=== PATIENT | male | born 1940 | race Hispanic/Latino ===

== ENCOUNTER 2018-01-06 15:39 | Emergency (ER) | payer OTHER ==
[~2018-01-06 15:39] MED LIST: ACET1TAB12 PO; ASPI-1181 PO; ATOR20TA65 PO; CALC-866 PO; DABI150C PO; ISOSM20 PO; TRAM50TA4 PO; VERA240SR PO
[2018-01-06] MEDS ORDERED: TETANUS/DIPHTHERIA TOXOID [ADULT] 0.5 ML VIAL IM ONE (16:16)
[2018-01-06] MEDS ORDERED: IBUPROFEN 600 MG TABLET ONE (17:08)
== END 2018-01-06 17:21 | disposition home or self-care (01) ==
LOC: EDH 15:39
DX: S46.002A Unspecified injury of muscle(s) and tendon(s) of the rotator cuff of left shoulder, initial encounter (principal); S80.812A Abrasion, left lower leg, initial encounter; S80.811A Abrasion, right lower leg, initial encounter; M19.90 Unspecified osteoarthritis, unspecified site; I48.91 Unspecified atrial fibrillation; E11.9 Type 2 diabetes mellitus without complications; I10 Essential (primary) hypertension; W18.39XA Other fall on same level, initial encounter; Y93.89 Activity, other specified; Y92.89 Other specified places as the place of occurrence of the external cause; Y99.8 Other external cause status
CPT/HCPCS: 73030; 73562; 90471; 90714

== ENCOUNTER → 2018-11-16 | Outpatient (CLI) | payer OTHER | END | disposition home or self-care (01) | LOC: RAH 16:11 | PROVIDERS: ATTEND Internal Medicine | DX: M25.561 Pain in right knee (principal) | CPT/HCPCS: 73562 ==

== ENCOUNTER → 2018-11-19 | Outpatient (CLI) | payer OTHER ==
[2018-11-19 11:55] LABS: BASOPHILS % (AUTO) 0.6 % (0.0-5.0); EOSINOPHILS % (AUTO) 3.9 % (0.0-8.0); HEMATOCRIT 46.5 % (42-54); MEAN CORPUSCULAR HEMOGLOBIN 29.7 pg (27.0-33.0); MEAN CORPUSCULAR HGB CONC 32.7 g/dL (32.0-36.0); MEAN CORPUSCULAR VOLUME 90.8 fL (79-99); MONOCYTES % (AUTO) 11.9 % (3.0-13.0); NEUTROPHILS % (AUTO) 62.6 % (40.0-77.0); NUCLEATED RED BLOOD CELLS 0.2 % (0.0-0.19); PLATELET COUNT (AUTO) 169 K/uL (130-400); RED BLOOD CELL COUNT(AUTO) 5.12 MIL/uL (4.50-6.20); RED CELL DISTRIBUTION WIDTH 14.1 % (11.0-15.5); WHITE BLOOD COUNT (AUTO) 5.1 K/uL (4.8-10.8)
[2018-11-19 12:24] LABS: ALANINE AMINOTRANSFERASE 16 U/L (12-78); ALBUMIN 3.7 g/dL (3.5-5.0); ASPARTATE AMINOTRANSFERASE 14 U/L (10-37); BILIRUBIN,TOTAL 1.5 mg/dL (0.2-1.0); CARBON DIOXIDE 29 mmol/L (21-32); CHLORIDE 105 mmol/L (101-111); CHOLESTEROL 151 mg/dL (<200); GLOMERULAR FILTR. RATE CALC 77 mL/min (>60); GLUCOSE,RANDOM 101 mg/dL (70-105); HDL CHOLESTEROL 53 mg/dL (29-71); LDL DIRECT 86 mg/dL (0-99); POTASSIUM 4.2 mmol/L (3.5-5.1); SODIUM SERUM 144 mmol/L (136-145); THYROID STIMULATING HORMONE 3.14 uIU/mL (0.36-3.74); TOTAL PROTEIN, SERUM 7.8 g/dL (6.0-8.3); TRIGLYCERIDES 96 mg/dL (30-200); UREA NITROGEN, BLOOD 17 mg/dL (7-18)
[2018-11-19 12:50] LABS: HEMOGLOBIN A1C 6.1 % (4.0-6.0)
== END | disposition home or self-care (01) ==
LOC: LAB 11:24
PROVIDERS: ATTEND Internal Medicine
DX: I48.91 Unspecified atrial fibrillation (principal); I25.10 Atherosclerotic heart disease of native coronary artery without angina pectoris; E78.5 Hyperlipidemia, unspecified; E53.8 Deficiency of other specified B group vitamins; Z79.899 Other long term (current) drug therapy
CPT/HCPCS: 36415; 80053; 80061; 82607; 82746; 83036; 84443; 85025

== ENCOUNTER → 2018-12-19 | Outpatient (CLI) | payer OTHER | END | disposition home or self-care (01) | LOC: RAH 13:11 | PROVIDERS: ATTEND Internal Medicine | DX: Z01.818 Encounter for other preprocedural examination (principal); M25.561 Pain in right knee; M17.11 Unilateral primary osteoarthritis, right knee | CPT/HCPCS: 71046 ==

== ENCOUNTER → 2018-12-24 | Outpatient (CLI) | payer OTHER | END | disposition home or self-care (01) | LOC: SHCH 08:40 | PROVIDERS: ATTEND Internal Medicine Cardiovascular Disease | DX: I11.9 Hypertensive heart disease without heart failure (principal); I35.1 Nonrheumatic aortic (valve) insufficiency; I35.8 Other nonrheumatic aortic valve disorders | CPT/HCPCS: 93306 ==

== ENCOUNTER → 2019-01-17 | Outpatient (CLI) | payer OTHER ==
[~2019-01-17] VITALS: Ht 162.6 cm; Wt 68.0 kg
[~2019-01-17] MED LIST changes: +REGADENOSON 0.4 MG/5 ML PF SYG IVP SCH
== END | disposition home or self-care (01) ==
LOC: SHCH 09:04
PROVIDERS: ATTEND Internal Medicine Cardiovascular Disease
DX: I10 Essential (primary) hypertension (principal); I48.2 Chronic atrial fibrillation
CPT/HCPCS: 78452; 93017; 96374; A9500 ×2; J2785

== ENCOUNTER → 2019-03-18 | Outpatient (CLI) | payer OTHER ==
[~2019-03-18] MED LIST changes: -REGADENOSON 0.4 MG/5 ML PF SYG IVP SCH
== END | disposition home or self-care (01) ==
LOC: RAH 15:53
PROVIDERS: ATTEND Internal Medicine
DX: I11.0 Hypertensive heart disease with heart failure (principal); I50.9 Heart failure, unspecified; M47.815 Spondylosis without myelopathy or radiculopathy, thoracolumbar region; M41.85 Other forms of scoliosis, thoracolumbar region; I70.0 Atherosclerosis of aorta
CPT/HCPCS: 71046

== ENCOUNTER → 2019-09-04 | Outpatient (CLI) | payer OTHER | END | disposition home or self-care (01) | LOC: RAH 16:58 | PROVIDERS: ATTEND Internal Medicine | DX: S42.92XA Fracture of left shoulder girdle, part unspecified, initial encounter for closed fracture (principal); M19.012 Primary osteoarthritis, left shoulder; M89.8X4 Other specified disorders of bone, hand; W19.XXXA Unspecified fall, initial encounter; Y93.89 Activity, other specified; Y92.89 Other specified places as the place of occurrence of the external cause; Y99.8 Other external cause status | CPT/HCPCS: 73030; 73060 ==

== ENCOUNTER 2020-07-07 19:38 | Emergency (ER) | payer OTHER ==
[~2020-07-07 19:38] MED LIST changes: -ASPI-1181 PO; +ASPI-1443 PO
[2020-07-07] MEDS ORDERED: DiphenhydrAMINE HCL 50 MG/ML VIAL ONE (19:53)
[2020-07-07] MEDS ORDERED: METHYLPREDNISOLONE SOD SUCC 125MG/2ML VIAL ONE (19:54)
[2020-07-07] MEDS ORDERED: FAMOTIDINE/PF 20 MG/2 ML VIAL IV ONE (19:54)
[2020-07-07] MEDS ORDERED: ALBUTEROL SULFATE 0.083% 2.5 MG/3 ML INH IH ONE (19:59)
== END 2020-07-07 21:34 | disposition home or self-care (01) ==
LOC: EDH 19:38
DX: T63.441A Toxic effect of venom of bees, accidental (unintentional), initial encounter (principal); T78.40XA Allergy, unspecified, initial encounter; M19.90 Unspecified osteoarthritis, unspecified site; E11.9 Type 2 diabetes mellitus without complications; I10 Essential (primary) hypertension; I48.91 Unspecified atrial fibrillation; Y92.89 Other specified places as the place of occurrence of the external cause
CPT/HCPCS: 93005; 94640; 96374; 96375; 99284; J1200; J2930; J3490

== ENCOUNTER → 2020-11-11 | Outpatient (CLI) | payer OTHER | END | disposition home or self-care (01) | LOC: RAH 09:31 | PROVIDERS: ATTEND Internal Medicine | DX: M16.11 Unilateral primary osteoarthritis, right hip (principal); M24.7 Protrusio acetabuli; M25.751 Osteophyte, right hip | CPT/HCPCS: 73502 ==

== ENCOUNTER → 2020-12-02 | Outpatient (CLI) | payer OTHER | END | disposition home or self-care (01) | LOC: RAH 14:00 | PROVIDERS: ATTEND Internal Medicine | DX: K41.90 Unilateral femoral hernia, without obstruction or gangrene, not specified as recurrent (principal); R10.31 Right lower quadrant pain; M15.0 Primary generalized (osteo)arthritis | CPT/HCPCS: 76882 ==

== ENCOUNTER 2022-01-02 22:40 | Emergency (ER) | payer OTHER ==
[~2022-01-02] VITALS: Ht 160 cm; Wt 63.5 kg
[~2022-01-02 22:40] MED LIST changes: -VERA240SR PO; +VERA240T96 PO
[2022-01-02] MEDS ORDERED: TETANUS/DIPHTHERIA TOXOID [ADULT] 0.5 ML VIAL IM ONE (23:00)
[2022-01-02] MEDS ORDERED: ACETAMINOPHEN WITH CODEINE 1 TAB TAB PO ONE (23:00)
[2022-01-02 23:46] LABS: BASOPHILS % (AUTO) 0.2 % (0.0-5.0); EOSINOPHILS % (AUTO) 1.9 % (0.0-8.0); HEMATOCRIT 40.8 % (42-54); LYMPHOCYTES % (AUTO) 9.9 % (21.0-51.0); MEAN CORPUSCULAR HEMOGLOBIN 30.4 pg (27.0-33.0); MEAN CORPUSCULAR HGB CONC 32.6 g/dL (32.0-36.0); MEAN CORPUSCULAR VOLUME 93.2 fL (79-99); MONOCYTES % (AUTO) 12.4 % (3.0-13.0); NEUTROPHILS % (AUTO) 75.2 % (40.0-77.0); PLATELET COUNT (AUTO) 217 K/uL (130-400); RED BLOOD CELL COUNT(AUTO) 4.38 MIL/uL (4.50-6.20); RED CELL DISTRIBUTION WIDTH 13.4 % (11.0-15.5); WHITE BLOOD COUNT (AUTO) 8.5 K/uL (4.8-10.8)
[2022-01-03 00:07] LABS: CREATININE 1.1 mg/dL (0.5-1.5); POTASSIUM 3.9 mmol/L (3.5-5.1)
[2022-01-03 00:16] LABS: ALBUMIN 3.8 g/dL (3.5-5.0); BILIRUBIN,TOTAL 1.1 mg/dL (0.2-1.0); TOTAL PROTEIN, SERUM 7.4 g/dL (6.0-8.3)
[2022-01-03 01:06] VITALS: BP 144/73
== END 2022-01-03 01:42 | disposition home or self-care (01) ==
LOC: EDH 22:40
DX: S93.401A Sprain of unspecified ligament of right ankle, initial encounter (principal); S00.81XA Abrasion of other part of head, initial encounter; M25.569 Pain in unspecified knee; E78.00 Pure hypercholesterolemia, unspecified; I10 Essential (primary) hypertension; I25.10 Atherosclerotic heart disease of native coronary artery without angina pectoris; Z79.01 Long term (current) use of anticoagulants; Z79.82 Long term (current) use of aspirin; W18.39XA Other fall on same level, initial encounter; Y93.89 Activity, other specified; Y92.89 Other specified places as the place of occurrence of the external cause; Y99.8 Other external cause status
CPT/HCPCS: 29515; 36415; 70450; 72125; 73610; 73630; 80053; 84484; 85025; 90471; 90714

== ENCOUNTER 2022-01-21 11:35 | Emergency (ER) | payer OTHER ==
[~2022-01-21] VITALS: Ht 152.4 cm; Wt 59.0 kg
[~2022-01-21 11:35] MED LIST changes: -NAPR-1196 PO
[2022-01-21] MEDS ORDERED: NAPR-1196 PO (12:09)
[2022-01-21 12:26] VITALS: BP 145/74
== END 2022-01-21 12:27 | disposition home or self-care (01) ==
LOC: EDH 11:35
DX: S62.616A Displaced fracture of proximal phalanx of right little finger, initial encounter for closed fracture (principal); S60.151A Contusion of right little finger with damage to nail, initial encounter; E11.9 Type 2 diabetes mellitus without complications; E78.00 Pure hypercholesterolemia, unspecified; I10 Essential (primary) hypertension; I25.10 Atherosclerotic heart disease of native coronary artery without angina pectoris; Z79.01 Long term (current) use of anticoagulants; Z79.82 Long term (current) use of aspirin; Z90.49 Acquired absence of other specified parts of digestive tract; X58.XXXA Exposure to other specified factors, initial encounter; Y93.89 Activity, other specified; Y92.89 Other specified places as the place of occurrence of the external cause; Y99.8 Other external cause status
CPT/HCPCS: 11740; 29130

== ENCOUNTER → 2022-01-21 | Outpatient (CLI) | payer OTHER ==
[~2022-01-21] MED LIST changes: +NAPR-1196 PO
== END | disposition home or self-care (01) ==
LOC: RAH 10:37
PROVIDERS: ATTEND Internal Medicine
DX: S62.646A Nondisplaced fracture of proximal phalanx of right little finger, initial encounter for closed fracture (principal); S60.221A Contusion of right hand, initial encounter; M19.041 Primary osteoarthritis, right hand; X58.XXXA Exposure to other specified factors, initial encounter; Y93.89 Activity, other specified; Y92.89 Other specified places as the place of occurrence of the external cause; Y99.8 Other external cause status
CPT/HCPCS: 73110; 73130

== ENCOUNTER 2022-09-08 15:50 | Emergency (ER) | payer OTHER ==
[~2022-09-08] VITALS: Ht 160 cm; Wt 61.2 kg
[~2022-09-08 15:50] MED LIST changes: +NAPR-1196 PO
[2022-09-08 15:56] VITALS: BP 138/81
[2022-09-08 17:16] LABS: APPEARANCE,URINE CLEAR (CLEAR); BILIRUBIN,URINE NEGATIVE (NEGATIVE); COLOR,URINE LIGHT-YELLOW (YELLOW); GLUCOSE, URINE (UA) NEGATIVE (NEGATIVE); KETONES,URINE NEGATIVE (NEGATIVE); LEUKOCYTE ESTERASE ,URINE NEGATIVE Leu/uL (NEGATIVE); NITRATE,URINE NEGATIVE (NEGATIVE); OCCULT BLOOD,URINE NEGATIVE (NEGATIVE); PH,URINE 6.5 (5.0-8.0); PROTEIN,URINE NEGATIVE (NEGATIVE); UROBILINOGEN,URINE 0.2 mg/dL (0.2-1.0)
== END 2022-09-08 18:45 | disposition home or self-care (01) ==
LOC: EDH 15:50
DX: M25.561 Pain in right knee (principal); E78.00 Pure hypercholesterolemia, unspecified; I10 Essential (primary) hypertension; Z98.890 Other specified postprocedural states; Z79.899 Other long term (current) drug therapy; Z79.82 Long term (current) use of aspirin
CPT/HCPCS: 73562; 81003

== ENCOUNTER 2023-01-28 02:38 | Emergency (ER) | payer OTHER ==
[~2023-01-28] VITALS: Ht 162.6 cm; Wt 65.8 kg
[2023-01-28] MEDS ORDERED: ONDANSETRON 4MG INJ IVP ONE (03:00)
[2023-01-28] MEDS ORDERED: MORPHINE 2 MG SYG IVP ONE (03:00)
[2023-01-28 03:09] LABS: BASOPHILS % (AUTO) 0.3 % (0.0-5.0); EOSINOPHILS % (AUTO) 3.4 % (0.0-8.0); HEMATOCRIT 42.4 % (42-54); LYMPHOCYTES % (AUTO) 18.1 % (21.0-51.0); MEAN CORPUSCULAR HEMOGLOBIN 29.9 pg (27.0-33.0); MEAN CORPUSCULAR HGB CONC 32.3 g/dL (32.0-36.0); MEAN CORPUSCULAR VOLUME 92.6 fL (79-99); MONOCYTES % (AUTO) 10.9 % (3.0-13.0); NEUTROPHILS % (AUTO) 66.6 % (40.0-77.0); PLATELET COUNT (AUTO) 196 K/uL (130-400); RED BLOOD CELL COUNT(AUTO) 4.58 MIL/uL (4.50-6.20); RED CELL DISTRIBUTION WIDTH 14.5 % (11.0-15.5); WHITE BLOOD COUNT (AUTO) 6.1 K/uL (4.8-10.8)
[2023-01-28 03:15] LABS: POTASSIUM 3.3 mmol/L (3.5-5.1)
[2023-01-28 03:20] LABS: ALBUMIN 3.7 g/dL (3.5-5.0); TOTAL PROTEIN, SERUM 7.4 g/dL (6.0-8.3)
[2023-01-28 06:02] VITALS: BP 123/58
[2023-01-28] MEDS ORDERED: ACET-2079 PO (06:17)
[2023-01-28] MEDS ORDERED: IBUP-2070 PO (06:17)
== END 2023-01-28 06:34 | disposition home or self-care (01) ==
LOC: EDH 02:38
DX: S22.42XA Multiple fractures of ribs, left side, initial encounter for closed fracture (principal); I10 Essential (primary) hypertension; E11.9 Type 2 diabetes mellitus without complications; E78.00 Pure hypercholesterolemia, unspecified; Z98.890 Other specified postprocedural states; Z79.899 Other long term (current) drug therapy; Z79.82 Long term (current) use of aspirin; V89.2XXA Person injured in unspecified motor-vehicle accident, traffic, initial encounter; Y93.I9 Activity, other involving external motion; Y92.488 Other paved roadways as the place of occurrence of the external cause; Y99.8 Other external cause status
CPT/HCPCS: 99285; 70450; 96374; 96375; 84484; 80053; 85025; 36415; 72125; 71250; 74176; 93005; J2405

== ENCOUNTER 2023-07-29 06:55 | Emergency (ER) | payer OTHER ==
[~2023-07-29] VITALS: Ht 154.9 cm; Wt 56.7 kg
[~2023-07-29 06:55] MED LIST changes: +ACET-2079 PO; +IBUP-2070 PO
[2023-07-29] MEDS ORDERED: MORPHINE 4 MG SYG IVP ONE ×2 (07:00→09:00)
[2023-07-29] MEDS ORDERED: ONDANSETRON 4MG INJ IVP ONE (07:00)
[2023-07-29 07:20] LABS: BASOPHILS # (AUTO) 0.02 K/uL (0.00-0.20); BASOPHILS % (AUTO) 0.3 % (0.0-5.0); EOSINOPHILS # (AUTO) 0.28 K/uL (0.00-0.70); EOSINOPHILS % (AUTO) 4.2 % (0.0-8.0); HEMATOCRIT 34.5 % (42-54); IMMATURE GRANULOCYTE ABSOLUTE 0.02 K/uL (0-1); LYMPHOCYTES # (AUTO) 1.1 K/uL (1.0-4.8); LYMPHOCYTES % (AUTO) 16.5 % (21.0-51.0); MEAN CORPUSCULAR HEMOGLOBIN 30.2 pg (27.0-33.0); MEAN CORPUSCULAR VOLUME 91.3 fL (79-99); MONOCYTES # (AUTO) 0.7 K/uL (0.1-1.0); MONOCYTES % (AUTO) 10.9 % (3.0-13.0); NEUTROPHILS # (AUTO) 4.5 K/uL (1.8-7.7); NEUTROPHILS % (AUTO) 67.8 % (40.0-77.0); PLATELET COUNT (AUTO) 179 K/uL (130-400); RED BLOOD CELL COUNT(AUTO) 3.78 MIL/uL (4.50-6.20); RED CELL DISTRIBUTION WIDTH 15.8 % (11.0-15.5); WHITE BLOOD COUNT (AUTO) 6.6 K/uL (4.8-10.8)
[2023-07-29 07:29] LABS: ALCOHOL, BLOOD < 3 mg/dL (0-10)
[2023-07-29 07:30] LABS: INR 1.03 (0.85-1.15); PROTHROMBIN TIME 11.9 SEC (9.6-11.6)
[2023-07-29 07:31] LABS: PARTIAL THROMBOPLASTIN TIME 27.9 SEC (26.3-35.5)
[2023-07-29 07:57] LABS: ALANINE AMINOTRANSFERASE 19 U/L (12-78); ALBUMIN 3.4 g/dL (3.5-5.0); ASPARTATE AMINOTRANSFERASE 18 U/L (10-37); BILIRUBIN,TOTAL 1.1 mg/dL (0.2-1.0); CARBON DIOXIDE 25 mmol/L (21-32); CHLORIDE 106 mmol/L (101-111); CREATINE KINASE, TOTAL 119 U/L (21-232); CREATININE 1.2 mg/dL (0.5-1.5); GLOMERULAR FILTR. RATE CALC 60 mL/min (>90); GLUCOSE,RANDOM 109 mg/dL (70-105); MYOGLOBIN 1205 ng/mL (10-92); POTASSIUM 3.4 mmol/L (3.5-5.1); SODIUM SERUM 138 mmol/L (136-145); TOTAL PROTEIN, SERUM 6.8 g/dL (6.0-8.3); UREA NITROGEN, BLOOD 18 mg/dL (7-18)
[2023-07-29 08:15] VITALS: BP 132/78; PULSE 72; RESP 18
[2023-07-29] MEDS ORDERED: DONE10TA43 PO (08:36)
[2023-07-29] MEDS ORDERED: APIX5TAB PO (08:36)
[2023-07-29] MEDS ORDERED: DULO30CA52 PO (08:36)
[2023-07-29] MEDS ORDERED: TAMS-1 PO (08:36)
[2023-07-29] MEDS ORDERED: ISOS10TA8 PO (08:36)
== END 2023-07-29 11:30 | disposition home or self-care (01) ==
LOC: EDH 06:55
DX: S43.014A Anterior dislocation of right humerus, initial encounter (principal); I10 Essential (primary) hypertension; E11.9 Type 2 diabetes mellitus without complications; E78.00 Pure hypercholesterolemia, unspecified; G44.309 Post-traumatic headache, unspecified, not intractable; Z79.82 Long term (current) use of aspirin; Z79.01 Long term (current) use of anticoagulants; Z79.899 Other long term (current) drug therapy; Z98.890 Other specified postprocedural states; W01.0XXA Fall on same level from slipping, tripping and stumbling without subsequent striking against object, initial encounter; Y93.89 Activity, other specified; Y92.89 Other specified places as the place of occurrence of the external cause; Y99.8 Other external cause status
CPT/HCPCS: 99285; 70450; 23650; 96374; 71045; 96375; 82550; 83874; 84484; 80053; 85025; 85610; 85730; 36415; 73090; 73060; 73030; 72125; 73020 ×2; 96376; 93005; J2405; J2270 ×2

== ENCOUNTER → 2023-08-25 | Outpatient (CLI) | payer OTHER ==
[~2023-08-25] MED LIST changes: -ACET-2079 PO; -ACET1TAB12 PO; +APIX5TAB PO; -ASPI-1443 PO; -CALC-866 PO; -DABI150C PO; +DONE10TA43 PO; +DULO30CA52 PO; -IBUP-2070 PO; +ISOS10TA8 PO; -ISOSM20 PO; -NAPR-1196 PO; +REGADENOSON 0.4 MG/5 ML PF SYG IVP ONE; +TAMS-1 PO; -TRAM50TA4 PO
== END | disposition home or self-care (01) ==
LOC: SHCH 07:59
PROVIDERS: ATTEND Internal Medicine Cardiovascular Disease
DX: I48.91 Unspecified atrial fibrillation (principal); I25.10 Atherosclerotic heart disease of native coronary artery without angina pectoris
CPT/HCPCS: 78452; 96374; 93017; J2785; A9500 ×2

== ENCOUNTER 2024-07-19 10:55 | Inpatient (IN) | payer MEDICARE ==
[~2024-07-19] VITALS: Ht 157.5 cm; Wt 59.2 kg
[~2024-07-19 10:55] MED LIST changes: -REGADENOSON 0.4 MG/5 ML PF SYG IVP ONE
[2024-07-19 11:29] LABS: BASOPHILS # (AUTO) 0.02 K/uL (0.00-0.20); BASOPHILS % (AUTO) 0.3 % (0.0-5.0); EOSINOPHILS # (AUTO) 0.17 K/uL (0.00-0.70); EOSINOPHILS % (AUTO) 2.1 % (0.0-8.0); HEMATOCRIT 41.1 % (42-54); IMMATURE GRANULOCYTE ABSOLUTE 0.03 K/uL (0-1); MEAN CORPUSCULAR HEMOGLOBIN 29.8 pg (27.0-33.0); MEAN CORPUSCULAR HGB CONC 33.1 g/dL (32.0-36.0); MEAN CORPUSCULAR VOLUME 89.9 fL (79-99); MONOCYTES # (AUTO) 0.9 K/uL (0.1-1.0); MONOCYTES % (AUTO) 10.8 % (3.0-13.0); NEUTROPHILS % (AUTO) 74.4 % (40.0-77.0); PLATELET COUNT (AUTO) 208 K/uL (130-400); RED BLOOD CELL COUNT(AUTO) 4.57 MIL/uL (4.50-6.20)
[2024-07-19 11:31] LABS: CREATININE 1.1 mg/dL (0.5-1.3); POTASSIUM 3.7 mmol/L (3.5-5.1)
[2024-07-19 11:35] LABS: ALBUMIN 3.4 g/dL (3.5-5.0); BILIRUBIN,TOTAL 1.2 mg/dL (0.2-1.0); MAGNESIUM 2.1 mg/dL (1.80-2.40)
[2024-07-19] MEDS: 0.9% NACL 500ML IV.SOLN 500 ML IV ONE (11:56)
[2024-07-19] MEDS: DOPamine HCL 400 MG/D5%-WATER 250 ML IV STA ×2 (12:27→12:28)
[2024-07-19] MEDS ORDERED: CALCIUM GLUC 1GM/10ML VIAL IV ONE (13:00)
[2024-07-19] MEDS: CALCIUM GLUC 1GM 1 GM in 0.9%NACL 100ML 100 ML IV ONE (13:28)
[2024-07-19] MEDS: 0.9% NACL 500ML IV.SOLN 500 ML IV SCH (13:28)
[2024-07-19 13:45] LABS: APPEARANCE,URINE CLEAR (CLEAR); BILIRUBIN,URINE NEGATIVE (NEGATIVE); COLOR,URINE YELLOW (YELLOW); GLUCOSE, URINE (UA) NEGATIVE (NEGATIVE); KETONES,URINE NEGATIVE (NEGATIVE); LEUKOCYTE ESTERASE ,URINE NEGATIVE Leu/uL (NEGATIVE); NITRATE,URINE NEGATIVE (NEGATIVE); OCCULT BLOOD,URINE SMALL (NEGATIVE); PROTEIN,URINE 10 mg/dL (NEGATIVE)
[2024-07-19 13:46] LABS: ADD UA MICROSCOPIC YES
[2024-07-19 13:47] LABS: MUCUS,URINE RARE LPF (None Seen); SQUAMOUS EPITHELIAL CELL,UR RARE /HPF (0-2)
[2024-07-19 14:46] LABS: INR 1.13 (0.85-1.15); PROTHROMBIN TIME 12.1 SEC (9.6-11.6)
[2024-07-19 14:47] LABS: PARTIAL THROMBOPLASTIN TIME 31.2 SEC (26.3-35.5)
[2024-07-19] MEDS ORDERED: MAGNESIUM 2GM PREMIX 50ML 50 ML IV PRN (16:00)
[2024-07-19] MEDS ORDERED: POTASSIUM CHLORIDE 10% ELIXIR 20 MEQ/15 ML UDCUP PO PRN (16:00)
[2024-07-19] MEDS ORDERED: KCL 20 MEQ ERTAB PO PRN (16:00)
[2024-07-19] MEDS ORDERED: POTASSIUM CHLORIDE 20MEQ/100ML 100 ML IV PRN ×2 (16:00)
[2024-07-19 16:43] LABS: HEMOGLOBIN A1C 5.6 % (4.0-6.0)
[2024-07-20] VITALS (28 sets, daily range): BP systolic 113–162; BP diastolic 50–109; PULSE 56–81; RESP 11–19; TEMP 97.5–98.8; O2SAT 97–99
[2024-07-20 06:09] LABS: BASOPHILS # (AUTO) 0.03 K/uL (0.00-0.20); BASOPHILS % (AUTO) 0.5 % (0.0-5.0); EOSINOPHILS % (AUTO) 3.2 % (0.0-8.0); HEMATOCRIT 43.3 % (42-54); IMMATURE GRANULOCYTE ABSOLUTE 0.02 K/uL (0-1); LYMPHOCYTES # (AUTO) 0.8 K/uL (1.0-4.8); LYMPHOCYTES % (AUTO) 12.7 % (21.0-51.0); MEAN CORPUSCULAR HEMOGLOBIN 29.9 pg (27.0-33.0); MEAN CORPUSCULAR HGB CONC 32.6 g/dL (32.0-36.0); MEAN CORPUSCULAR VOLUME 91.9 fL (79-99); MONOCYTES # (AUTO) 0.6 K/uL (0.1-1.0); MONOCYTES % (AUTO) 9.7 % (3.0-13.0); NEUTROPHILS # (AUTO) 4.7 K/uL (1.8-7.7); NEUTROPHILS % (AUTO) 73.6 % (40.0-77.0); PLATELET COUNT (AUTO) 165 K/uL (130-400); RED BLOOD CELL COUNT(AUTO) 4.71 MIL/uL (4.50-6.20); RED CELL DISTRIBUTION WIDTH 14.2 % (11.0-15.5); WHITE BLOOD COUNT (AUTO) 6.3 K/uL (4.8-10.8)
[2024-07-20 06:37] LABS: ALBUMIN 3.3 g/dL (3.5-5.0); BILIRUBIN,TOTAL 1.3 mg/dL (0.2-1.0); CREATININE 1.1 mg/dL (0.5-1.3); POTASSIUM 3.8 mmol/L (3.5-5.1); TOTAL PROTEIN, SERUM 7.2 g/dL (6.0-8.3)
[2024-07-20] MEDS ORDERED: acetaMINOPHEN 325 MG TAB PO PRN (07:00)
[2024-07-20] MEDS ORDERED: hydrALAZine 20MG/ML VIAL IV PRN (07:00)
[2024-07-20] MEDS ORDERED: acetaMINOPHEN 650 MG SUPPOSITORY RC PRN (07:00)
[2024-07-20] MEDS ORDERED: doCUSate SODIUM 100 MG CAP PO PRN (07:00)
[2024-07-20] MEDS ORDERED: ENOXAPARIN SODIUM 30 MG/0.3 ML SQ SCH (09:00)
[2024-07-20] MEDS: FAMOTIDINE 20MG TAB PO SCH (09:25)
[2024-07-20] MEDS: APIXaban 5 MG TABLET PO SCH (09:26)
[2024-07-20] MEDS: tamSULOsin HCL 0.4 MG CAP.ER.24H PO SCH (12:30)
[2024-07-20] MEDS: duloXETine HCL 30 MG CAP PO SCH (20:15)
[2024-07-20] MEDS: atorVAStatin 20 MG TABLET PO SCH (20:15)
[2024-07-20] MEDS ORDERED: NON-FORMULARY MEDICATION 1 EACH (Donepezil HCl 10 MG) PO SCH (21:00)
[2024-07-20] MEDS ORDERED: duloXETine HCL 30 MG CAP PO SCH (21:00)
[2024-07-20] MEDS ORDERED: doNEPEZil HCL 5 MG TAB PO SCH (21:00)
[2024-07-21] VITALS (11 sets, daily range): BP systolic 98–144; BP diastolic 54–82; PULSE 64–91; RESP 15–20; TEMP 97.5–98.9; O2SAT 99
[2024-07-21 04:16] LABS: BASOPHILS # (AUTO) 0.02 K/uL (0.00-0.20); BASOPHILS % (AUTO) 0.3 % (0.0-5.0); EOSINOPHILS # (AUTO) 0.18 K/uL (0.00-0.70); EOSINOPHILS % (AUTO) 2.3 % (0.0-8.0); HEMATOCRIT 44.1 % (42-54); IMMATURE GRANULOCYTE ABSOLUTE 0.04 K/uL (0-1); LYMPHOCYTES # (AUTO) 0.7 K/uL (1.0-4.8); LYMPHOCYTES % (AUTO) 8.2 % (21.0-51.0); MEAN CORPUSCULAR HEMOGLOBIN 29.7 pg (27.0-33.0); MEAN CORPUSCULAR HGB CONC 33.1 g/dL (32.0-36.0); MEAN CORPUSCULAR VOLUME 89.6 fL (79-99); MONOCYTES # (AUTO) 0.7 K/uL (0.1-1.0); MONOCYTES % (AUTO) 9.2 % (3.0-13.0); NEUTROPHILS # (AUTO) 6.3 K/uL (1.8-7.7); NEUTROPHILS % (AUTO) 79.5 % (40.0-77.0); PLATELET COUNT (AUTO) 190 K/uL (130-400); RED BLOOD CELL COUNT(AUTO) 4.92 MIL/uL (4.50-6.20); RED CELL DISTRIBUTION WIDTH 13.9 % (11.0-15.5)
[2024-07-21 04:43] LABS: CREATININE 1.1 mg/dL (0.5-1.3); MAGNESIUM 1.9 mg/dL (1.80-2.40); POTASSIUM 3.5 mmol/L (3.5-5.1); TOTAL PROTEIN, SERUM 6.7 g/dL (6.0-8.3)
[2024-07-21 04:58] LABS: B-TYPE NATRIURETIC PEPTIDE 545 pg/mL (0-100)
[2024-07-21] MEDS: 0.9%NACL 1000ML 1,000 ML IV SCH (08:05)
== END 2024-07-21 16:20 | disposition home or self-care (01) | DRG 310 ==
LOC: EDH 10:55 → EDHIP 13:55 → 2CH 07-20 01:02 → 2AH 07-20 13:50
PROVIDERS: ADMIT Internal Medicine; ATTEND Internal Medicine
DX: I48.91 Unspecified atrial fibrillation (principal); G52.2 Disorders of vagus nerve; E03.9 Hypothyroidism, unspecified; F03.90 Unspecified dementia, unspecified severity, without behavioral disturbance, psychotic disturbance, mood disturbance, and anxiety; I25.10 Atherosclerotic heart disease of native coronary artery without angina pectoris; I12.9 Hypertensive chronic kidney disease with stage 1 through stage 4 chronic kidney disease, or unspecified chronic kidney disease; N18.2 Chronic kidney disease, stage 2 (mild); I95.1 Orthostatic hypotension; E11.22 Type 2 diabetes mellitus with diabetic chronic kidney disease; T50.995A Adverse effect of other drugs, medicaments and biological substances, initial encounter; D63.1 Anemia in chronic kidney disease; I08.0 Rheumatic disorders of both mitral and aortic valves; I27.20 Pulmonary hypertension, unspecified; E78.00 Pure hypercholesterolemia, unspecified; Y92.89 Other specified places as the place of occurrence of the external cause; Z86.73 Personal history of transient ischemic attack (TIA), and cerebral infarction without residual deficits; Z79.01 Long term (current) use of anticoagulants; Z79.899 Other long term (current) drug therapy
CPT/HCPCS: 36415; 71045; 80053; 81001; 82948; 83036; 83605; 83735; 83880; 84145; 84439; 84443; 84484; 85025; 85610; 85730; 86140; 93005; 93306; 93308; 99291; G0378; J0612; J1265; J7040

== ENCOUNTER 2024-09-15 16:08 | Emergency (ER) | payer MEDICARE ==
[~2024-09-15 16:08] MED LIST changes: -DONE10TA43 PO; -ISOS10TA8 PO; -VERA240T96 PO
[2024-09-15 18:45] VITALS: BP 141/98; PULSE 82; RESP 18; TEMP 97.7; O2SAT 95
== END 2024-09-15 19:08 | disposition home or self-care (01) ==
LOC: EDH 16:08
DX: S00.83XA Contusion of other part of head, initial encounter (principal); E11.9 Type 2 diabetes mellitus without complications; E78.00 Pure hypercholesterolemia, unspecified; I25.10 Atherosclerotic heart disease of native coronary artery without angina pectoris; Z79.01 Long term (current) use of anticoagulants; Z98.890 Other specified postprocedural states; W06.XXXA Fall from bed, initial encounter; Y93.89 Activity, other specified; Y92.89 Other specified places as the place of occurrence of the external cause; Y99.8 Other external cause status
CPT/HCPCS: 70450; 71045

== ENCOUNTER → 2024-09-20 | Outpatient (CLI) | payer MEDICARE ==
--- NOTE | 2024-09-20 16:56 | HMCIMG ---
ELBOW 2VWS LT HISTORY: Contusion COMPARISON: None TECHNIQUE: 2 images of left elbow were obtained. FINDINGS: There is no acute displaced fracture or dislocation. There is soft tissue swelling. Vascular calcifications are seen. Degenerative changes are seen. IMPRESSION: 1. Findings as described above.
--- NOTE | 2024-09-20 16:56 | HMCIMG ---
FOREARM 2VWS LT HISTORY: Pain COMPARISON: None TECHNIQUE: 2 images of left forearm were obtained. FINDINGS: There appears to be nondisplaced fracture involving the distal radius with articular extension of indeterminate age. Soft tissue swelling is seen. No dislocation is seen. Degenerative changes are seen. IMPRESSION: 1. Findings as described above.
--- NOTE | 2024-09-20 17:02 | HMCIMG ---
WRIST COMP 3+VWS LT HISTORY: Pain COMPARISON: None TECHNIQUE: 3 images of left wrist were obtained. FINDINGS: Nondisplaced fracture is seen suspected of the metaphyseal portion of the distal radius. Radiocarpal joint space narrowing is seen. Vascular calcifications are seen. No dislocation is seen. Degenerative changes are seen. IMPRESSION: 1. Findings as described above.
--- NOTE | 2024-09-20 17:03 | HMCIMG ---
HAND 3+VWS LT HISTORY: Status post fall COMPARISON: None TECHNIQUE: 3 images of left hand were obtained. FINDINGS: Interphalangeal joint space narrowing is seen. There is no acute displaced fracture or dislocation. Degenerative changes are seen. IMPRESSION: 1. Findings as described above.
== END | disposition home or self-care (01) ==
LOC: RAH 15:46
PROVIDERS: ATTEND Clinical Nurse Specialist Family Health
DX: S52.592A Other fractures of lower end of left radius, initial encounter for closed fracture (principal); M19.042 Primary osteoarthritis, left hand; M19.032 Primary osteoarthritis, left wrist; M19.022 Primary osteoarthritis, left elbow; M25.422 Effusion, left elbow; M79.642 Pain in left hand; M25.532 Pain in left wrist; M79.632 Pain in left forearm; X58.XXXA Exposure to other specified factors, initial encounter; Y93.89 Activity, other specified; Y92.89 Other specified places as the place of occurrence of the external cause; Y99.8 Other external cause status
CPT/HCPCS: 73070; 73090; 73110; 73130

== ENCOUNTER 2024-09-21 15:33 | Emergency (ER) | payer MEDICARE ==
[~2024-09-21] VITALS: Ht 152.4 cm; Wt 68.0 kg
--- NOTE | 2024-09-21 15:48 | ERN ---
ED Note History of Present Illness Stated Complaint: INJURY OF ARM Chief Complaint: Arm Swelling/Redness Time Seen by MD: 15:36 Dictation: PATIENT IS AN 84-YEAR-OLD MALE HERE AFTER HE WAS CALLED BY HIS PRIMARY CARE DOCTOR TO COME IN FOR A SPLINT. HE IS STATUS POST A SAME LEVEL TRIP FALL SEVERAL DAYS AGO, SAW HIS PRIMARY CARE DOCTOR ON 09/20 AND WAS SENT TO OUTPATIENT RADIOLOGY FOR SEVERAL X-RAYS. DISTAL WRIST X-RAY DEMONSTRATES A NONDISPLACED DISTAL RADIUS FRACTURE WITH SWELLING NOTED ON EXAM HERE IN TRIAGE. NO SPLINT IS IN PLACE DISTAL NEUROVASCULAR CMS INTACT. Allergies: Coded Allergies: No Known Drug Allergies (Verified Allergy, Unknown, 08/17/15) Home Meds Reported Medications Duloxetine HCl (Duloxetine HCl) 30 Mg Capsule.dr, 30 MG PO HS, CAP 07/29/23 Tamsulosin HCl (Flomax) 0.4 Mg Cap.er.24h, 0.4 MG PO DAILYLUNCH, CAPSULE.DR 07/29/23 Apixaban (Eliquis) 5 Mg Tablet, 5 MG PO BID, TAB 07/29/23 Atorvastatin Calcium (Atorvastatin Calcium) 20 Mg Tablet, 20 MG PO HS, #90 08/17/15 Past Medical History Past Medical History: High Cholesterol, Heart Disease, Hypertension, Stroke Additional Past Medical Hx: Allergic rhinitis Surgical History: Other Surgical History Other: KNEE SURGERY PSYCH History: no pertinent psych hx Family History: Negative Social History: Negative RN Note Reviewed/Agreed w/PFSH: Yes Review of System Dictation CONSTITUTIONAL: NEGATIVE EXCEPT FOR HPI HEAD/FACE: NEGATIVE EXCEPT FOR HPI EENT: NEGATIVE EXCEPT FOR HPI RESPIRATORY: NEGATIVE EXCEPT FOR HPI GASTROINTESTINAL/ABDOMINAL: NEGATIVE EXCEPT FOR HPI GENITOURINARY: NEGATIVE EXCEPT FOR HPI MUSCULOSKELETAL: NEGATIVE EXCEPT FOR HPI DISTAL LEFT MEDIAL WRIST PAIN SWELLING INTEGUMENTARY: NEGATIVE EXCEPT FOR HPI NEUROLOGICAL/PSYCH: NEGATIVE EXCEPT FOR HPI HEMATOLOGIC/LYMPHATIC: NEGATIVE EXCEPT FOR HPI ALL SYSTEMS NEGATIVE, EXCEPT NOTED ABOVE. 13 POINT REVIEW OF SYSTEMS ASSESSED AND ALL NEGATIVE EXCEPT FOR ABOVE. Initial Vital Sign VS Vital Signs Date Time Temp Pulse Resp B/P (MAP) Pulse Ox O2 Delivery O2 Flow Rate FiO2 09/21/24 15:36 98.1 82 20 114/82 96 Room Air 0 Physical Exam Dictation VITAL SIGNS REVIEWED GENERAL APPEARANCE: ALERT, ORIENTED X 3, NO ACUTE DISTRESS, WELL DEVELOPED, NOURISHED. HEAD AND FACE: NON-TRAUMATIC. EYES: PERRL, PINK CONJUNCTIVAS, EYELID NO TRAUMA, ANTERIOR CHAMBER WITH ARCUS SENILIS. EARS: PINNAS INTACT AND NO SIGNS OF TRAUMA OR ERYTHEMA EAR CANALS CLEAR AND NO DISCHARGE TM NO ERYTHEMA NOSE: NO DISCHARGE, NO BLEEDING. OROPHARYNX: MOUTH NORMAL, TONGUE PINK, PHARYNX CLEAR,NO ERYTHEMA, TONSILS NO EXUDATES, NO ABSCESSES NOTED, MUCOUS MEMBRANE MOIST NECK: SUPPLE, NON-TENDER, NO THYROMEGALY, NO MASSES, NO JVD, NO BRUITS BREAST:DEFERRED CHEST:NO TENDERNESS, NO CREPITUS, NO PARADOXICAL MOVEMENT, NO RETRACTIONS LUNGS:CLEAR, WELL-VENTILATED, SYMMETRIC, NO RALES, NO WHEEZING, NO RHONCHI, NO STRIDOR, GOOD BREATH SOUNDS BILATERALLY HEART: REGULAR RATE, REGULAR RHYTHM, NO MURMUR, NO GALLOPS VASCULAR: NO PERIPHERAL EDEMA, ABDOMEN: SOFT, POSITIVE BOWEL SOUNDS, NONDISTENDED, NO GUARDING, NONTENDER, NO REBOUND, NO MASSES NO HEPATOMEGALY, NO SPLENOMEGALY, NO MENDOZA'S SIGN, NO HERNIAS. RECTAL: DEFERRED GENITAL: DEFERRED NEUROLOGICAL: NORMAL SPEECH, MOTOR FUNCTION INTACT, SENSORY FUNCTION INTACT MUSCULOSKELETAL: NECK NONTENDER, FULL RANGE OF MOTION, BACK NONTENDER, FULL RANGE OF MOTION, EXTREMITIES: LEFT MEDIAL DISTAL RADIUS SWELLING TENDERNESS. NEUROVASCULAR CMS INTACT TO HAND. SKIN: COLOR PINK, DRY, NO TURGOR, NO RASH, NO LACERATIONS, NO ABRASIONS, NO CONTUSIONS. LYMPHATIC: DEFERRED Results (Laboratory/Radiology) Laboratory/Radiology WRIST COMP 3+VWS LT HISTORY: Pain COMPARISON: None TECHNIQUE: 3 images of left wrist were obtained. FINDINGS: Nondisplaced fracture is seen suspected of the metaphyseal portion of the distal radius. Radiocarpal joint space narrowing is seen. Vascular calcifications are seen. No dislocation is seen. Degenerative changes are seen. IMPRESSION: 1. Findings as described above. Labs Reviewed?: Yes ED Course ED Course Orders Procedure Category Date Status Time Volar Splint ANN.ER 09/21/24 Verified 15:43 Sling ANN 09/21/24 Verified 15:43 Vital Signs Date Time Temp Pulse Resp B/P (MAP) Pulse Ox O2 Delivery O2 Flow Rate FiO2 09/21/24 15:36 98.1 82 20 114/82 96 Room Air 0 1545, NEUROVASCULAR CMS INTACT AFTER VOLAR SPLINT PLACED BY TECH. Medical Decision Making MDM MEDICAL DECISION-MAKING BASED ON REVIEW HAS BEEN X-RAYS FROM 09/20/2024 AT [facility] [place] OUTPAT[facility] RADIOLOGY. SPLINT PLACED TO LEFT WRIST STATUS POST FINDINGS OF NONDISPLACED DISTAL LEFT RADIUS FRACTURE PATIENT DISCHARGED HOME TO FOLLOW UP WITH NEXT WEEK. SPLINT AND SLING IN PLACE NEUROVASCULAR CMS INTACT POST PLACED DX & DISP Disposition: Discharge Departure Impression: Primary Impression: Fracture of distal end of left radius Additional Impression: Fall Condition: Stable Referrals: SAMSON SANCHEZ MD (PCP) OSMAR MILES MD Time of Disposition: 15:47 I have reviewed the case, and I agree with, Diagnosis and Plan PARUL BUCKLEY NP Sep 21, 2024 15:48
[2024-09-21] MEDS: acetaMINOPHEN 500 MG TABLET PO ONE (16:01)
[2024-09-21 16:08] VITALS: BP 120/80; PULSE 80; RESP 20; TEMP 98; O2SAT 98
== END 2024-09-21 16:11 | disposition home or self-care (01) ==
LOC: EDH 15:33
DX: S52.502A Unspecified fracture of the lower end of left radius, initial encounter for closed fracture (principal); E78.00 Pure hypercholesterolemia, unspecified; I10 Essential (primary) hypertension; Z79.01 Long term (current) use of anticoagulants; Z86.73 Personal history of transient ischemic attack (TIA), and cerebral infarction without residual deficits; W01.0XXA Fall on same level from slipping, tripping and stumbling without subsequent striking against object, initial encounter; Y93.89 Activity, other specified; Y92.89 Other specified places as the place of occurrence of the external cause; Y99.8 Other external cause status
CPT/HCPCS: 29125

== ENCOUNTER → 2024-10-18 | Outpatient (CLI) | payer MEDICARE ==
--- NOTE | 2024-10-18 13:54 | HMCIMG ---
HIP UNILAT 2-3VW RIGHT HISTORY: Right hip pain COMPARISON: 11/11/2020 TECHNIQUE: 3 images of right hip were obtained. FINDINGS: Bilateral hip joint space narrowing is seen. Vascular calcifications are seen. There is no acute displaced fracture or dislocation. Degenerative changes are seen. IMPRESSION: 1. Findings as described above.
--- NOTE | 2024-10-18 13:56 | HMCIMG ---
HAND 3+VWS LT HISTORY: Fracture of distal radius COMPARISON: None TECHNIQUE: 4 images of left hand were obtained. FINDINGS: Extensive degenerative changes are seen with joint space narrowing. There is fracture involving the metaphyseal portion of the distal radius of indeterminate age. There is no other acute displaced fracture or dislocation. Degenerative changes are seen. Extensive osteophytes are seen in the interphalangeal joint and metacarpophalangeal joint areas. Destructive changes are noted of the third metacarpal head. IMPRESSION: 1. Findings as described above.
--- NOTE | 2024-10-18 13:57 | HMCIMG ---
WRIST COMP 3+VWS LT HISTORY: Osteoarthritis COMPARISON: None TECHNIQUE: 3 images of left wrist were obtained. FINDINGS: There is fracture involving the metaphyseal portion of the distal radius of indeterminate age. No definite displacement is seen. Vascular calcifications are seen. Radiocarpal joint space narrowing is seen. No other acute displaced fracture or dislocation is seen. Degenerative changes are seen. IMPRESSION: 1. Findings as described above.
== END | disposition home or self-care (01) ==
LOC: RAH 11:57
PROVIDERS: ATTEND Internal Medicine
DX: S52.502A Unspecified fracture of the lower end of left radius, initial encounter for closed fracture (principal); I70.208 Unspecified atherosclerosis of native arteries of extremities, other extremity; M19.032 Primary osteoarthritis, left wrist; M25.551 Pain in right hip; M19.042 Primary osteoarthritis, left hand; M16.11 Unilateral primary osteoarthritis, right hip; X58.XXXA Exposure to other specified factors, initial encounter; Y93.89 Activity, other specified; Y92.89 Other specified places as the place of occurrence of the external cause; Y99.8 Other external cause status
CPT/HCPCS: 73110; 73130; 73502

== ENCOUNTER → 2024-10-23 | Outpatient (CLI) | payer MEDICARE | END | disposition home or self-care (01) | LOC: SHCH 08:03 | PROVIDERS: ATTEND Internal Medicine Cardiovascular Disease | DX: I10 Essential (primary) hypertension (principal) | CPT/HCPCS: 93306 ==

== ENCOUNTER → 2024-10-24 | Outpatient (CLI) | payer MEDICARE ==
[2024-10-24] MEDS: REGADENOSON 0.4 MG/5 ML PF SYG IVP ONE (11:08)
--- NOTE | 2024-10-26 13:02 | HMCSR ---
APPROVED REPORT Height: 5 ft 4in Weight: 136 lbs TEST INDICATIONS Hypertension/HDD The imaging protocol used to acquire images was Rest Tc-99m/stress Tc-99m 1 day Consent: The procedure was explained and understood by the patient. Informerd consent was witnessed Nathanael Henderson RN First, low dose rest was performed then high dose stress. RESTING DATA: The resting ekg shows: Atrial Fibrillation Rest SPECT myocardial perfusion imaging was performed in supine position 73 minutes following the int ravenous injection of 12.7 mCi of Tc-99 Sestamibi. Time of rest injection: 09:30: Date: 10/24/2024 Time of rest imagin:43: Date: 10/24/2024 PHARMACOLOGIC STRESS: Pharmacologic stress test was performed by injecting regadenoson 0.4 mg IV push followed by the intra venous injection of 30.8 mCi of Tc-99 Sestamibi. Time of stress injection: 11:15: Date: 10/24/2024 Time of stress imagin:34: Date: 10/24/2024 Heart Rate at time of stress injection: 86 bpm. Gated Stress SPECT was performed 74 minutes after stress injection. The images were gated to evaluate regional wall motion and calculate left ventricular ejection fracti on. STRESS DETAILS Reason for Termination: Infusion complete Stress Symptoms: Dyspnea Max HR Achieved: 88 bpm % of APMHR Achieved: 65 Max Blood Pressure: 142/97 mmHg Stress ECG: Atrial Fibrillation LEFT VENTRICLE Size: The left ventricular size is normal. Systolic Function:The left ventricular systolic function is normal. Wall Motion: No regional wall motion abnormalities noted. The left ventricular ejection fraction was calculated to be 59%.TID = . LV PERFUSION The rest and stress images show normal perfusion. Conclusion The left ventricular size is normal. The left ventricular systolic function is normal. No regional wall motion abnormalities noted. The rest and stress images show normal perfusion. The left ventricular ejection fraction was calculated to be 59%.
== END | disposition home or self-care (01) ==
LOC: SHCH 09:04
PROVIDERS: ATTEND Internal Medicine Cardiovascular Disease
DX: I48.0 Paroxysmal atrial fibrillation (principal); I10 Essential (primary) hypertension
CPT/HCPCS: 78452; 93017; J2785; A9500 ×2

== ENCOUNTER → 2025-11-10 | Outpatient (CLI) | payer OTHER ==
[~2025-11-10] MED LIST changes: -TAMS-1 PO; +TAMS-55 PO
--- NOTE | 2025-11-11 11:00 | HMCIMG ---
STUDY: X-RAY OF THE ABDOMEN, 1 VIEW HISTORY: Abdominal distension; intra-abdominal and pelvic swelling/mass. TECHNIQUE: A single supine view of the abdomen is submitted for interpretation. COMPARISON: Abdominal radiograph from 11/04/2015. FINDINGS: Bowel gas pattern: Non-specific bowel gas pattern without disproportionate small bowel dilatation, air-fluid levels, or evidence of pneumoperitoneum. No obvious mass effect is identified. Soft tissues and solid organs: Visualized abdominal soft tissues are unremarkable on this radiograph. No abnormal calcifications or organomegaly can be confidently assessed on this projection. Bones: Degenerative changes are present in the lumbar spine. No acute osseous abnormality is identified. IMPRESSION: * Non-specific, nonobstructive bowel gas pattern without radiographic evidence of bowel obstruction or free intraperitoneal air. * Degenerative changes in the lumbar spine. * Compared with the abdominal radiograph from 11/04/2015, the overall appearance is stable without significant interval change. /[place]
== END ==
LOC: RAH 09:53
PROVIDERS: ATTEND Nurse Practitioner Family
DX: R14.0 Abdominal distension (gaseous) (principal); M47.816 Spondylosis without myelopathy or radiculopathy, lumbar region
CPT/HCPCS: 74018